=== PATIENT | female | born 1975 | race Caucasian/White ===

== ENCOUNTER 2017-08-04 11:09 | Day surgery (SDC) | payer BC, MEDICAID, OTHER ==
[~2017-08-04] VITALS: Ht 162.6 cm; Wt 67.5 kg
[2017-08-04 11:49] VITALS: BP 138/85
[2017-08-04] MEDS ORDERED: LACTATED RINGERS 1,000 ML IV SCH (11:51)
[2017-08-04] MEDS ORDERED: BUPIVACAINE/PF 0.5% ONE ×2 (12:46→13:17)
[2017-08-04] MEDS ORDERED: EPINEPHRINE 1 MG/ML, 1ML ONE (12:46)
[2017-08-04] MEDS ORDERED: FENTANYL PF 100 MCG/2ML ONE (12:52)
[2017-08-04] MEDS ORDERED: MIDAZOLAM 1 MG/ML, 2ML ONE (12:52)
[2017-08-04] MEDS ORDERED: ONDANSETRON 2MG/ML, 2ML ONE (12:54)
[2017-08-04] MEDS ORDERED: CEFAZOLIN 1,000 MG ONE (12:54)
[2017-08-04] MEDS ORDERED: DEXAMETHASONE 4 MG/ML, 1ML ONE (12:54)
[2017-08-04] MEDS ORDERED: PROPOFOL 10 MG/ML, 20ML ONE (12:54)
[2017-08-04] MEDS ORDERED: KETOROLAC 30 MG/1 ML ONE (12:56)
[2017-08-04] MEDS ORDERED: FENTANYL PF 100 MCG/2ML IV PRN (13:00)
[2017-08-04] MEDS ORDERED: MIDAZOLAM 1 MG/ML, 2ML IV PRN (13:00)
[2017-08-04] MEDS ORDERED: LABETALOL 5MG/ML, 20ML IV PRN (13:00)
[2017-08-04] MEDS ORDERED: hydrALAzine 20 MG/ML, 1ML IV PRN (13:00)
[2017-08-04] MEDS ORDERED: ACETAMINOPHEN 325 MG TABLET PO PRN (13:00)
[2017-08-04] MEDS ORDERED: ALBUTEROL/IPRATROPIUM 2.5MG/0.5MG, 3 ML NPPB PRN (13:00)
[2017-08-04] MEDS ORDERED: MEPERIDINE/PF 25MG/0.5ML IVPush PRN (13:00)
[2017-08-04] MEDS ORDERED: HYDROmorphone 1 MG/ML, 1ML IV PRN (13:00)
[2017-08-04] MEDS ORDERED: ONDANSETRON 2MG/ML, 2ML IVPush PRN (13:00)
[2017-08-04] MEDS ORDERED: DIAZEPAM 5 MG/ML, 2ML IVPush PRN (13:00)
[2017-08-04] MEDS ORDERED: OXYcodone 5 MG/5 ML ORAL.SOL UDC PO PRN (13:00)
[2017-08-04] MEDS ORDERED: LORazepam 2 MG/ML, 1ML IVPush PRN (13:00)
[2017-08-04] MEDS ORDERED: PROMETHAZINE 25 MG/ML, 1ML IV PRN (13:00)
[2017-08-04] MEDS ORDERED: BUPIVACAINE/PF 0.5% INFIL ONE (13:30)
[2017-08-04 13:32] LABS: HCG UR SG 1.021 (1.003-1.030)
[2017-08-04] MEDS ORDERED: OXYcodone 5 MG/5 ML ORAL.SOL UDC ONE (13:48)
[2017-08-04] MEDS ORDERED: ACETAMINOPHEN 650 MG/20.3 ML UDC ONE (13:48)
== END 2017-08-04 15:20 ==
LOC: OUT 11:09
PROVIDERS: ATTEND Surgery
DX: D17.23 Benign lipomatous neoplasm of skin and subcutaneous tissue of right leg (principal)
CPT/HCPCS: 27337; 81025; 88305; J0690; J1100; J1885; J2250; J2405; J2704; J3010; J3490; J7120; J0171

== ENCOUNTER 2018-03-20 10:45 | Emergency (ER) | payer OTHER ==
[~2018-03-20] VITALS: Ht 162.6 cm; Wt 69.9 kg
[2018-03-20] MEDS ORDERED: SODIUM CHLORIDE FLUSH 10ML SYR IVF ONE (11:30)
[2018-03-20 11:56] LABS: BASOPHILS # (AUTO) 0.04 x10^3/uL (0-0.1); BASOPHILS % (AUTO) 1 % (0-1); EOSINOPHILS # (AUTO) 0.09 x10^3/uL (0-0.4); EOSINOPHILS % (AUTO) 1 % (1-7); LYMPHOCYTES # (AUTO) 1.86 x10^3/uL (1-3.4); LYMPHOCYTES % (AUTO) 30 % (22-44); MD NO; MEAN CORPUSCULAR HEMOGLOBIN 32.4 pg (27.0-34.8); MEAN CORPUSCULAR HGB CONC 34.2 g/dL (32.4-35.8); MEAN CORPUSCULAR VOLUME 94.7 fL (80-100); MEAN PLATELET VOLUME 8.9 fL (7.4-10.4); MONOCYTES % (AUTO) 7 % (2-9); NEUTROPHILS % (AUTO) 61 % (42-75); PLATELET COUNT 308 x10^3/uL (130-400); RED BLOOD COUNT 4.55 x10^6/uL (3.82-5.3)
[2018-03-20 11:57] LABS: MICROSCOPIC NOT IND
[2018-03-20 12:01] LABS: CULTURE INDICATED? NO
[2018-03-20 12:04] LABS: ALBUMIN 3.9 g/dL (3.4-5.0); ANION GAP 7 mmol/L (5-15); CALCIUM 9.1 mg/dL (8.5-10.1); CHLORIDE 109 mmol/L (98-107)
[2018-03-20 12:10] LABS: ALANINE AMINOTRANSFERASE 26 U/L (12-78); ALKALINE PHOSPHATASE 53 U/L (45-117); BILIRUBIN,TOTAL 0.4 mg/dL (0.2-1.0); CREATININE 0.94 mg/dL (0.55-1.02); TOTAL PROTEIN 7.1 g/dL (6.4-8.2)
[2018-03-20] MEDS ORDERED: OMNIPAQUE 350 MG/ML, 100ML BOTTLE ONE (13:40)
[2018-03-20 14:54] VITALS: BP 124/70
== END 2018-03-20 14:56 | disposition home or self-care (01) ==
LOC: ED 14:30
DX: N83.201 Unspecified ovarian cyst, right side (principal); F17.200 Nicotine dependence, unspecified, uncomplicated
CPT/HCPCS: 36415; 74177; 80053; 81003; 83690; 84703; 85025; 99285; Q9967

== ENCOUNTER 2018-11-20 22:53 | Emergency (ER) | payer OTHER ==
[~2018-11-20] VITALS: Ht 162.6 cm; Wt 65.0 kg
--- NOTE | 2018-11-20 23:02 | NUR ---
PHYSICIAN AT BEDSIDE. PT CRYING AND UPSET WITH NUMBER OF PEOPLE IN ROOM. STAFF LEFT EXCEPT FOR PHYSICIAN AND DOOR CLOSED.
--- NOTE | 2018-11-20 23:29 | NUR ---
PT CRYING. WENT TO [facility] FOR REHAB DUE TO ALCOHOLISM. PT WAS TOLD SHE NEEDED TO BE MEDICALLY CLEARED BY PHYSICIAN. PT DID NOT WANT TO TRANSPORTED BY AMBULANCE SO [facility] CALLED [facility]. PT BROUGHT IN BY [facility] AND PLACED ON LEGAL HOLD. PT CRYING AND UPSET, "JUST WANTS TO GO HOME." PHYSICIAN AT BEDSIDE, UPDATED ON POC. VSS. PT STATES " IM JUST GOING THROUGH A ROUGH TIME AND A DIVORCE AND I JUST WENT TO GET HELP SO I DON'T LOSE MY KIDS."
[2018-11-20 23:31] LABS: MEAN CORPUSCULAR HEMOGLOBIN 32.3 pg (27.0-34.8); MEAN PLATELET VOLUME 7.7 fL (7.4-10.4); PLATELET COUNT 346 x10^3/uL (130-400); RED BLOOD COUNT 4.83 x10^6/uL (3.82-5.3); RED CELL DISTRIBUTION WIDTH 15.4 % (9.6-15.2)
[2018-11-20 23:42] LABS: ALANINE AMINOTRANSFERASE 53 U/L (12-78); ALBUMIN 4.5 g/dL (3.4-5.0); ANION GAP 9 mmol/L (5-15); CALCIUM 8.6 mg/dL (8.5-10.1); CHLORIDE 108 mmol/L (98-107)
[2018-11-20 23:43] LABS: SALICYLATE LEVEL < 1.7 mg/dL (2.8-20.0)
[2018-11-20 23:44] LABS: ALKALINE PHOSPHATASE 78 U/L (45-117); BILIRUBIN,TOTAL 0.2 mg/dL (0.2-1.0); TOTAL PROTEIN 7.8 g/dL (6.4-8.2)
[2018-11-20 23:45] LABS: AMPHETAMINE SCREEN, URINE Negative (Negative); BARBITURATE SCREEN, URINE Negative (Negative); BENZODIAZEPINE SCREEN, URINE Negative (Negative); CANNABINOID SCREEN, URINE Positive (Negative); COCAINE SCREEN, URINE Negative (Negative); METHADONE SCREEN, URINE Negative (Negative); OPIATE SCREEN, URINE Negative (Negative)
[2018-11-20 23:51] LABS: CREATININE 0.81 mg/dL (0.55-1.02)
[2018-11-20 23:54] LABS: ACETAMINOPHEN < 2 mcg/mL (10-30)
[2018-11-21 00:03] LABS: MD YES
--- NOTE | 2018-11-21 00:03 | NUR ---
PT UPSET, CRYING, AND PACING IN ROOM. KEEPS REPEATING "SHE WANTS TO GO HOME, CAN'T I JUST GO OUTSIDE FOR A LITTLE BIT." PT INFORMED ON LEGAL HOLD. SITTER AT BEDSIDE.
[2018-11-21 00:07] LABS: <PLATELET ESTIMATE> ADEQUATE; <PLT MORPHOLOGY> NORMAL PLT MORPH; ANISOCYTOSIS 1+; BASOS#(MANUAL) 0.08 x10^3/uL (0-0.1); BASOS% (MANUAL) 1 % (0-1); EOS% (MANUAL) 4 % (1-7); LYMPH#(MANUAL) 3.88 x10^3/uL (1-3.4); LYMPHS% (MANUAL) 51 % (22-44); MONOS#(MANUAL) 0.38 x10^3/uL (0.3-2.7); MONOS% (MANUAL) 5 % (2-9); SEG#(MANUAL) 2.96 x10^3/uL (1.8-6.8); SEGS% (MANUAL) 39 % (42-75)
--- NOTE | 2018-11-21 01:01 | NUR ---
PHYSICIAN AT BEDSIDE. ALE REMAINS AT BEDSIDE.
[2018-11-21] MEDS ORDERED: LORazepam 1MG TABLET ONE (01:47)
[2018-11-21] MEDS ORDERED: LORazepam 1MG TABLET PO ONE (02:00)
--- NOTE | 2018-11-21 02:34 | NUR ---
PT RESTING ON SIVA HERNÁNDEZ, DENIES NEEDS, CALL LIGHT WITHIN REACH
--- NOTE | 2018-11-21 03:02 | NUR ---
sitter at doorway for continous monitoring
--- NOTE | 2018-11-21 03:21 | NUR ---
PT RESTING CALMLY WITH EYES CLOSED, NADN, EQUAL CHEST RISE/FALL OBSERVED, ROOM REMAINS SECURED, SITTER AT DOORWAY FOR CONTINOUS MONITORING
[2018-11-21 03:30] VITALS: BP 112/70
--- NOTE | 2018-11-21 04:02 | NUR ---
REPORT GIVEN TO SANTI KANG AT [facility]
--- NOTE | 2018-11-21 04:03 | NUR ---
Patient to be transported to [id number]. Accepting RN Marc, Accepting MD Dr. Flores. No need for MTM as patient has [employer]. [facility] aware that patient refused transport via them and [facility] was required to get the patient to [facility] ED. [facility] states that they will send unit out here and if patient becomes an issue they will call [facility] themselves.
--- NOTE | 2018-11-21 04:55 | NUR ---
[facility] AT PT'S BEDSIDE FOR TRANSPORT TO [facility], PT REFUSING TRANSPORT VIA [facility]. [facility] AT PT'S BEDSIDE AND STATED THEY'RE NOT ABLE TO TRANSPORT PT TO [facility].
[2018-11-21] MEDS ORDERED: SODIUM CHLORIDE FLUSH 10ML SYR IVF ONE (05:30)
[2018-11-21] MEDS ORDERED: ASPIRIN 81 MG TABLET CHEW PO ONE (05:30)
== END 2018-11-21 05:57 ==
LOC: ED 11-21 01:59
DX: F32.9 Major depressive disorder, single episode, unspecified (principal); R45.851 Suicidal ideations; F10.129 Alcohol abuse with intoxication, unspecified; Z00.01 Encounter for general adult medical examination with abnormal findings
CPT/HCPCS: 36415; 80053; 80307; 80329; 83735; 84703; 85025; 99285; G0480

== ENCOUNTER 2020-07-15 11:03 | Emergency (ER) | payer MEDICAID, OTHER ==
[~2020-07-15] VITALS: Ht 162.6 cm; Wt 64.5 kg
--- NOTE | 2020-07-15 11:32 | NUR ---
C/O CHEST PRESSURE SINCE LAST NIGHT REPORTS IT'S INCREASE TO 5/10. DENIES CURRENT N/V. PLACED ON CARDIAC AND VITALS MONITORS.
[2020-07-15 11:45] LABS: BASOPHILS % (AUTO) 1 % (0-1); EOSINOPHILS % (AUTO) 1 % (1-7); LYMPHOCYTES % (AUTO) 37 % (22-44); MEAN CORPUSCULAR HEMOGLOBIN 31.4 pg (27.0-34.8); MEAN CORPUSCULAR HGB CONC 33.1 g/dL (32.4-35.8); MEAN PLATELET VOLUME 8.1 fL (7.4-10.4); MONOCYTES % (AUTO) 6 % (2-9); NEUTROPHILS % (AUTO) 55 % (42-75); PLATELET COUNT 225 x10^3/uL (130-400); RED BLOOD COUNT 4.41 x10^6/uL (3.82-5.3); RED CELL DISTRIBUTION WIDTH 12.9 % (9.6-15.2)
[2020-07-15 11:47] LABS: MD NO
[2020-07-15 11:53] LABS: ALANINE AMINOTRANSFERASE 33 U/L (12-78); ANION GAP 7 mmol/L (5-15); CALCIUM 8.9 mg/dL (8.5-10.1); CHLORIDE 110 mmol/L (98-107); CREATININE 0.82 mg/dL (0.55-1.02)
[2020-07-15 11:57] LABS: ALKALINE PHOSPHATASE 44 U/L (45-117); BILIRUBIN,TOTAL 0.5 mg/dL (0.2-1.0); TOTAL PROTEIN 7.5 g/dL (6.4-8.2); TROPONIN I < 0.015 ng/mL (0.000-0.045)
[2020-07-15] MEDS ORDERED: MAALOX/HYOSCYAMINE/LIDOCAINE 45 ML BTL ONE (12:28)
[2020-07-15] MEDS ORDERED: MAALOX/HYOSCYAMINE/LIDOCAINE 45 ML BTL PO ONE (12:30)
[2020-07-15 12:55] VITALS: BP 117/69
== END 2020-07-15 13:01 | disposition home or self-care (01) ==
LOC: ED 12:50
DX: R07.2 Precordial pain (principal); Z20.828 Contact with and (suspected) exposure to other viral communicable diseases; R11.0 Nausea; M79.662 Pain in left lower leg; F17.200 Nicotine dependence, unspecified, uncomplicated
CPT/HCPCS: 36415; 71045; 80053; 84443; 84484; 84703; 85025; 85379; 87635; 93005; 99285